=== PATIENT | male | born 1985 | race African-American/Black ===

== ENCOUNTER 2018-08-11 11:25 | Emergency (ER) | payer MEDICAID, SELFPAY ==
[~2018-08-11] VITALS: Ht 160 cm; Wt 81.6 kg
[~2018-08-11 11:25] MED LIST: UNOBMED
--- NOTE | 2018-08-11 11:27 | NUR ---
ED Nurse Note: Pt BIBA due to complaints of dizziness x 3 hours ago. Pt was riding his bike when it started. Complaining of 7/10 rt hand pain. Non radiating. Pt is A + O x4. Ambulatory. Skin warm to touch.
[2018-08-11 11:28] VITALS: BP 120/95
--- NOTE | 2018-08-11 12:21 | Emergency Room Report ---
History of Present Illness General Chief Complaint: Generalized Weakness Source: EMS Present Illness HPI 33-year-old male presents emergency department complaining of episode of feeling lightheaded/dizzy while he was riding his bike earlier today. Patient reports that symptoms did resolve continuously on their own. Patient states that he recently was taking Eliud and believes that this may be a side effect of the drugs on the symptoms stem. Patient denies recent trauma or fall he denies nausea, vomiting, sudden onset of headache, neck pain/stiffness, photophobia, chest pain or palpitations. Patient does report history of paranoid schizophrenia he states that he has some paranoia at the moment however he denies SI, HI, PSAs, kristi, delusions or hallucinations. Denies fevers or chills. Denies abdominal pain. Allergies: Coded Allergies: No Known Allergies (Unverified , 02/29/12) Patient History Past Medical History: see triage record Past Surgical History: none Pertinent Family History: none Social History: Reports: drug use - eliud Immunizations: UTD Reviewed Nursing Documentation: PMH: Agreed; PSxH: Agreed Nursing Documentation-PMH Past Medical History: No History, Except For Hx Asthma: Yes History Of Psychiatric Problem: Yes Hx Seizures: Yes Review of Systems All Other Systems: negative except mentioned in HPI Physical Exam Vital Signs Date Time Temp Pulse Resp B/P (MAP) Pulse Ox O2 Delivery O2 Flow Rate FiO2 08/11/18 11:21 99.3 90 18 123/97 100 Room Air 08/11/18 11:28 98 Sp02 EP Interpretation: reviewed, normal General Appearance: no apparent distress, alert, GCS 15, non-toxic Head: normocephalic, atraumatic Eyes: bilateral eye normal inspection, bilateral eye PERRL ENT: hearing grossly normal, normal voice Neck: full range of motion Respiratory: chest non-tender, lungs clear, normal breath sounds, speaking full sentences Cardiovascular #1: regular rate, rhythm Gastrointestinal: non tender, soft Rectal: deferred Genitourinary: normal inspection Musculoskeletal: back normal, gait/station normal, normal range of motion, non- tender Neurologic: alert, oriented x3, responsive, motor strength/tone normal, sensory intact, normal gait, speech normal, no pronator, other - No facial droop , alert answering questions appropriately, grossly normal Psychiatric: judgement/insight normal, no suicidal/homicidal ideation, no delusions, other - engaged in conversations, answering appropriately, normal affect. Skin: normal color, no rash, warm/dry, well hydrated Medical Decision Making PA Attestation Dr. Perdomo is my supervising Physician whom patient management has been discussed with. Diagnostic Impression: Primary Impression: Side effect of drug ER Course 33-year-old male presents emergency department complaining of episode of feeling lightheaded/dizzy while he was riding his bike earlier today. Patient reports that symptoms did resolve continuously on their own. Patient states that he recently was taking Eliud and believes that this may be a side effect of the drugs on the symptoms stem. Patient denies recent trauma or fall he denies nausea, vomiting, sudden onset of headache, neck pain/stiffness, photophobia, chest pain or palpitations. Patient does report history of paranoid schizophrenia he states that he has some paranoia at the moment however he denies SI, HI, PSAs, kristi, delusions or hallucinations. Denies fevers or chills. Denies abdominal pain. Ddx considered but are not limited to acute psychosis, anxiety, cardiac etiology , electrolyte imbalance, dehydration just to name a few. Vital signs: are WNL, pt. is afebrile H&PE are most consistent with side effect of the illicit drug use. --With spontaneous resolve minutes symptoms without need for medical management/ treatment.--- non toxic in appearance, NAD, not evidence to suggest being a danger to himself or others at this time. ORDERS: none required at this time, the diagnosis is clinical ED INTERVENTIONS: None required at this time. -discussed with this patient that he needs to discontinue his illicit drug use I also discussed with him that he should return if he has worsening of his symptoms or new symptoms occur. Patient was inquiring about outpatient psychiatric therapy he has been provided with multiple resources of outpatient clinics for his inquiry. DISCHARGE: At this time pt. is stable for d/c to home. Will provide printed patient care instructions, and any necessary prescriptions. Care plan and follow up instructions have been discussed with the patient prior to discharge. Last Vital Signs Date Time Temp Pulse Resp B/P (MAP) Pulse Ox O2 Delivery O2 Flow Rate FiO2 08/11/18 11:28 99.3 66 18 120/95 98 Room Air 2/25/19 11:28 98 Disposition: HOME, SELF-CARE Condition: Stable Patient Instructions: Dizziness, [id number] Additional Instructions: DRINK PLENTY OF WATER, STOP USE OF DRUGS/ALCOHOL as these can make you symptoms worsen Take any previously prescribed medications as directed. Follow up with a Mental Health Specialist/ Psychiatrist in 3 days, even if your symptoms have resolved. --Please review [facility] resource information provided As well as other Outpatient Mental Health resources. Return sooner to ED if new symptoms occur, or current symptoms become worse. - Please note that this Emergency Department Report was dictated using [email or web address] rn manager technology software, occasionally this can lead to erroneous entry secondary to interpretation by the dictation equipment. Erica Reed Aug 11, 2018 12:21
[2018-08-11 12:31] VITALS: BP 117/78
--- NOTE | 2018-08-11 12:32 | NUR ---
ER DISCHARGE NOTE: Patient is cleared to be discharged per ERMD, pt is aox4, on room air, with stable vital signs. pt was given dc instructions, pt was able to verbalize understanding, pt id band removed without complications. pt is able to ambulate with steady gait. pt took all belongings.
== END 2018-08-11 12:39 | disposition home or self-care (01) ==
LOC: EDBD 11:25 → EMR 12:02
DX: R42 Dizziness and giddiness (principal); T50.995A Adverse effect of other drugs, medicaments and biological substances, initial encounter; Y92.89 Other specified places as the place of occurrence of the external cause
CPT/HCPCS: 99281

== ENCOUNTER 2018-08-11 15:16 | Emergency (ER) | payer MEDICAID ==
[~2018-08-11] VITALS: Ht 162.6 cm; Wt 72.6 kg
--- NOTE | 2018-08-11 15:25 | NUR ---
ED Nurse Note: Pt was recently discharged from [facility] a few hours ago. Came back saying he's paranoid and hearing voices. Denies wanting to hurt himself or others. Denies pain.
[2018-08-11 15:26] VITALS: BP 130/74
--- NOTE | 2018-08-11 15:29 | Emergency Room Report ---
History of Present Illness General Chief Complaint: Behavioral Complaint Source: Patient Present Illness Allergies: Coded Allergies: No Known Allergies (Unverified , 02/29/12) Patient History Past Medical History: see triage record Past Surgical History: none Pertinent Family History: none Reviewed Nursing Documentation: PMH: Agreed; PSxH: Agreed Nursing Documentation-PMH Past Medical History: No Stated History Hx Asthma: Yes Hx Seizures: Yes Review of Systems All Other Systems: negative except mentioned in HPI Physical Exam Vital Signs Date Time Temp Pulse Resp B/P (MAP) Pulse Ox O2 Delivery O2 Flow Rate FiO2 08/11/18 15:17 98.8 86 16 132/74 99 Room Air Medical Decision Making PA Attestation Dr. Wilson is my supervising Physician whom patient management has been discussed with. Diagnostic Impression: Primary Impression: Encounter for medical screening examination ER Course Pt presents to ED c/o [ ] Ddx considered but are not limited to AMS, ETOH, infection, Trauma/Fall, CVA, IA , Psych, homelessness Vital signs: are WNL, pt. is afebrile H&PE are most consistent with no acute injury or disease noted at this time. pt. is NAD, NON-toxic, able to answer questions appropriately, pt. is oriented, and no signs of trauma or focal neurological deficits. No Acute psychosis, not a danger to himself or others. -Pt. is [not] homeless ORDERS: none required at this time, the diagnosis is clinical ED INTERVENTIONS: None required at this time Pt. is stable for close outpatient follow up. DISCHARGE: At this time pt. is stable for d/c to home. Will provide printed patient care instructions, and any necessary prescriptions. Care plan and follow up instructions have been discussed with the patient prior to discharge. Last Vital Signs Date Time Temp Pulse Resp B/P (MAP) Pulse Ox O2 Delivery O2 Flow Rate FiO2 08/11/18 15:17 98.8 86 16 132/74 99 Room Air Disposition: HOME, SELF-CARE Condition: Stable Patient Instructions: Medical Screening Exam Additional Instructions: Take medications as directed. Follow up with a Primary Care Provider in 3-5 days, even if your symptoms have resolved. --Please review list of primary care clinics, if you do not already have a primary care provider Return sooner to ED if new symptoms occur, or current symptoms become worse. - Please note that this Emergency Department Report was dictated using Dragon distribution field technician technology software, occasionally this can lead to erroneous entry secondary to interpretation by the dictation equipment. Erica Reed Aug 11, 2018 15:29
[2018-08-11 15:34] VITALS: BP 127/77
--- NOTE | 2018-08-11 15:35 | NUR ---
ER DISCHARGE NOTE: Patient is cleared to be discharged per ERMD, pt is aox4, on room air, with stable vital signs. pt was given dc and prescription instructions, pt was able to verbalize understanding, pt id band removed without complications. pt is able to ambulate with steady gait. pt took all belongings.
== END 2018-08-11 15:36 | disposition home or self-care (01) ==
LOC: EDBD 15:16 → EMR 15:27
DX: F91.9 Conduct disorder, unspecified (principal); J45.909 Unspecified asthma, uncomplicated
CPT/HCPCS: 99281